=== PATIENT | male | born 1980 | race Caucasian/White ===

== ENCOUNTER 2019-07-11 01:54 | Day surgery (SDC) | payer OTHER, SELFPAY ==
[2019-07-09 10:26] VITALS: BMI 29.7
--- NOTE | 2019-07-11 07:28 | WPDANESEPPF ---
Anes - Initial Pre Proc Eval Procedure: Operation Date: 07/11/19 08:30 Proposed Procedures p Esophagogastroduodenoscopy - Yossi Murdock MD Date/Time: 07/11/19 07:28 Surgeon: Yossi Murdock MD Pre Op Diagnosis: dysphagia Patient Data Age: 38 Gender: M Height: 5 ft 10 in Weight: 94 kg Allergies Allergy/AdvReac Type Severity Reaction Status Date / Time No Known Allergies Allergy Verified 07/09/19 10:33 Home Medications Medication Instructions Recorded Confirmed Type omeprazole magnesium [Prilosec OTC] 20 mg PO DAILY 07/09/19 07/09/19 History Patient hx anesthesia problems: none Family hx anesthesia problems: none PMFSH Family History Family History Father Family history of cardiovascular disease Family history of cardiac disorder Social History Social History Smoking status: Never smoker Alcohol intake: current Anes - Eval Final PreProcedure Day of Procedure 07/11/19 07:28 Patient weight: overweight Heart: regular rate and rhythm Lungs: clear to auscultation Airway: Mallampati scale class II Neurological: alert and oriented Last oral intake: >/= 8 hours ASA classification: II Emergent: no Anesthetic plan: proceed Anesthesia type and monitoring: general GIVS and standard monitoring Informed Consent: The patient's anesthetic plan and its attendant risks and benefits were discussed with the patient/family/POA. Questions were solicited and answers provided to the satisfaction of the patient/family/POA.
[2019-07-11 07:45] VITALS: BP 140/97; PULSE 68; RESP 16; TEMP 36.3; O2SAT 100
[2019-07-11] MEDS: LACTATED RINGERS 1,000 ML 150 ML IV CONT (07:55)
--- NOTE | 2019-07-11 08:23 | PM.HPGS ---
History of Present Illness History of Present Illness Consent: Risks, benefits, and alternatives have been discussed and questions answered. Patient agrees to proceed with procedure. Chief complaint: dysphagia Narrative: Jeremy Coley is a 38 year old male who has been experiencing dysphagia. Two weeks ago, while eating chicken, he suddenly felt it get stuck just below his neck. Finally after while it passed. Ever since then however he has the sensation of something in his throat and has made it difficult for him to eat. Food does not get stuck but he feels that he is not hungry. He has had some heartburn and began taking omeprazole since the occurrence PMFSH Family History Family History Father Family history of cardiovascular disease Family history of cardiac disorder Social History Social History Smoking status: Never smoker Alcohol intake: current Meds Home Medications and Allergies Home Medications Medication Instructions Recorded Confirmed Type omeprazole magnesium [Prilosec OTC] 20 mg PO DAILY 07/09/19 07/11/19 History Allergies Allergy/AdvReac Type Severity Reaction Status Date / Time No Known Allergies Allergy Verified 07/11/19 07:43 Vital Signs Vital Signs - 24 hr 07/11/19 07:45 Temperature 36.3 C L Pulse Rate 68 Respiratory Rate 16 Blood Pressure 140/97 H Pulse Oximetry 100 Exam Const: General: alert Orientation/consciousness: patient oriented x3 Resp: Auscultation: clear to auscultation bilaterally Cardio: Rhythm: regular rhythm GI: GI Palp: Yes Soft to palpation and No Tenderness to palpation present (GI) Neuro: General: patient oriented x3 Assessment and Plan Assessment and plan (1) Dysphagia: Code(s): R13.10 - Dysphagia, unspecified Status: Acute Assessment and Plan: EGD with possible biopsy or dilatation or cautery.
[2019-07-11 08:40] VITALS: BP 102/60; PULSE 67; RESP 18; O2SAT 99
[2019-07-11 08:50] VITALS: BP 108/71; PULSE 64; RESP 20; O2SAT 99
[2019-07-11 09:00] VITALS: BP 115/67; PULSE 60; RESP 17; O2SAT 99
== END 2019-07-11 09:26 | disposition home or self-care (01) ==
PROVIDERS: PCP Family Medicine; Visit Provider Internal Medicine Gastroenterology
PROC: 0DJ08ZZ Inspection of Upper Intestinal Tract, Via Natural or Artificial Opening Endoscopic (ICD-10-PCS; CPT 43235; principal; 2019-07-11 08:30)
DX: K22.2 Esophageal obstruction (principal); D13.0 Benign neoplasm of esophagus; R12 Heartburn
CPT/HCPCS: 43249; 43239; 87081; 88305; C1726; J2704; J7120

== ENCOUNTER 2019-07-24 16:18 | Outpatient (CLI) | payer OTHER, SELFPAY ==
--- NOTE | ~2019-07-24 | XR_ITS ---
EXAMINATION:XR_[id number] DATE: 07/24/2019 16:42 INDICATION: Numbness and tingling down the back of the neck TECHNIQUE: AP, lateral, and odontoid views of the cervical spine are provided. COMPARISON: None FINDINGS: Alignment is normal. The odontoid is intact. No fracture is identified. Vertebral body heig hts and disk spaces are normal. Prevertebral soft tissues are normal. IMPRESSION: 1. No acute osseous abnormality. Reviewed, dictated and finalized at location A.
== END 2019-07-24 16:19 | disposition home or self-care (01) ==
PROVIDERS: PCP Family Medicine; Visit Provider Family Medicine
DX: M54.12 Radiculopathy, cervical region (principal)
CPT/HCPCS: 72040

== ENCOUNTER 2019-08-20 14:37 | Outpatient (CLI) | payer OTHER, SELFPAY ==
--- NOTE | ~2019-08-20 | MR_ITS ---
EXAMINATION: MR cervical spine wo con DATE: 08/20/2019 16:10 INDICATION: Cervical radiculopathy. Neck pain. TECHNIQUE: Magnetic resonance imaging (MRI) of the cervical spine was performed without intravenous c ontrast. Sequences included sagittal T2-weighted FSE, sagittal T2-weighted FS FSE, sagittal T1-weight ed FSE, axial MERGE and axial T2-weighted FSE. COMPARISON: Cervical spine radiographs dated 07/24/2019 FINDINGS: Bone alignment is normal. Vertebral body heights are normal. Bone marrow signal intensity is normal . Disc desiccation with mild disc height loss at T5 C6 and without significant disc height loss at C2 -C3 through C4-C5. There are annular fissures at each of these levels to BE discussed and further det guillermo below. Small central disc protrusions at T1-T2 and T2-T3 with minimal central canal stenosis. C ord signal intensity is normal. Cervical soft tissues are unremarkable. The following disc levels are specifically discussed: C2-C3: The disc does not extend beyond the endplate margin. There is no uncovertebral joint osteoarth ritis. There is no facet joint osteoarthritis. There is no neural foraminal stenosis. There is no abel tral canal stenosis. C3-C4: Disc is mildly bulging. There is mild right and moderate left uncovertebral joint osteoarthrit is. There is mild bilateral facet joint osteoarthritis. There is mild to moderate bilateral neural fo raminal stenosis. There is minimal central canal stenosis. C4-C5: Disc is mildly bulging. There is mild bilateral uncovertebral joint osteoarthritis. There is m ild bilateral facet joint osteoarthritis. There is mild bilateral neural foraminal stenosis. There is minimal central canal stenosis. C5-C6: Disc is mildly bulging with superimposed central disc extrusion with disc material extending a few millimeters cephalad and caudal to the level of the endplate margins and which flattens the vent ral surface of the cord. There is mild to moderate left and moderate right uncovertebral joint osteoa rthritis. There is mild bilateral facet joint osteoarthritis. There is mild left and moderate right n eural foraminal stenosis. There is mild central canal stenosis. C6-C7: Disc is mildly bulging. There is mild bilateral uncovertebral joint osteoarthritis. There is n o facet joint osteoarthritis. There is no neural foraminal stenosis. There is minimal central canal s tenosis. C7-T1: The disc does not extend beyond the endplate margin. There is mild bilateral uncovertebral kayla nt osteoarthritis. There is mild bilateral facet joint osteoarthritis. There is mild left neural fora maribeth stenosis. There is no central canal stenosis. IMPRESSION: 1. Mild cervical spondylosis. Reviewed, dictated and finalized at location A.
== END 2019-08-20 14:38 | disposition home or self-care (01) ==
LOC: ANHIMG 14:38
PROVIDERS: PCP Family Medicine; Visit Provider Family Medicine
DX: M47.22 Other spondylosis with radiculopathy, cervical region (principal)
CPT/HCPCS: 72141

== ENCOUNTER 2020-12-01 01:00 | Observation (INO) | payer OTHER, SELFPAY ==
[2020-12-01] VITALS (10 sets, daily range): BP systolic 128–176; BP diastolic 74–103; PULSE 62–90; RESP 16–23; TEMP 36.3–37; O2SAT 97–100; BMI 29.9
--- NOTE | ~2020-12-01 | XR_ITS ---
EXAMINATION: XR chest 2V DATE: 12/01/2020 01:51 INDICATION: Sternal chest pain TECHNIQUE: PA and lateral views of the chest are obtained. COMPARISON: 12/30/2015 FINDINGS: The lungs are free of acute opacities. There is no pleural effusion or pneumothorax. The ca rdiomediastinal silhouette is normal. The visualized bones and soft tissues are unremarkable. IMPRESSION: 1. No acute cardiopulmonary abnormality. Reviewed, dictated and finalized at location A.
--- NOTE | 2020-12-01 01:03 | ECG_ITS ---
Measurements Intervals [place] Rate: 73 P: 28 NC: 150 QRS: 7 QRSD: 120 T: 0 QT: 382 QTc: 421 Interpretive Statements SINUS RHYTHM WITH SINUS ARRHYTHMIA INTRAVENTRICULAR CONDUCTION DELAY DELAYED PRECORDIAL R/S TRANSITION MINIMAL Q WAVES- HIGH LATERAL LEADS BORDERLINE T WAVE ABNORMALITY- INFERIOR LEADS BASELINE ARTIFACT- I, II, III, AVL, AVF BORDERLINE ECG Electronically Signed On 12-01-2020 6:04:15 CDT by Ike Rubio D.O.
--- NOTE | 2020-12-01 01:05 | ED.CHESTPAIN ---
HPI - Chest Pain General Chief Complaint: Chest Pain Stated Complaint: chest pain, dizziness Time Seen by Provider: 12/01/20 01:01 Source: RN notes reviewed History of Present Illness HPI narrative: Patient presents emergency department from home for chest pain. Patient states he woke with pain this morning the pain is located in the midsternal chest and goes through to his back described as a pressure in nature. States that pain will wax and wane in intensity there is been present throughout the entire day he notes mild associated dizziness with the symptoms he denies any fevers or chills shortness of breath abdominal pain nausea vomiting diarrhea or any other symptoms states nothing makes the pain better or worse did not take any medication at home for the pain Related Data Allergies Allergy/AdvReac Type Severity Reaction Status Date / Time No Known Allergies Allergy Verified 01/28/20 14:16 Review of Systems Review of Systems: Gen.: Denies fevers or chills ENT: Denies congestion Respiratory: Denies shortness of breath or cough CV: See HPI GI: Denies abdominal pain nausea, emesis or diarrhea Musculoskeletal: Denies back pain or muscle pain Neuro: Denies numbness, tingling, weakness or focal weakness Skin: Denies rash Except as documented, all other systems reviewed and negative FORMERLY [facility], [facility]–1983 Past Medical History Medical History Acute gastric ulcer Angioedema Dysphagia History of chicken pox Pneumonia Surgical History Surgical History History of esophagogastroduodenoscopy (EGD) Murdock/4.15.20: schatzki's ring/ dilated. no white's History of vasectomy Family History Family History Father Heart disease Mother No chronic problems Grandparent Alzheimer's disease Social History Social History (Updated 12/01/20 @ 01:06 by Arturo Suresh DO) Smoking status: Never smoker Alcohol intake: current Exam Narrative: APPEARANCE: No acute distress, nontoxic, resting in bed EYES: EOMI HEENT: Normocephalic, atraumatic, OMM RESPIRATORY: No respiratory distress Clear to auscultation bilaterally with no rhonchi wheezing or rales. CARDIOVASCULAR: Regular rate and rhythm without murmurs rubs or gallops. ABDOMINAL: Soft, nontender, nondistended, no rebound or guarding MUSCULOSKELETAl: Moves all extremities. No clubbing, cyanosis or edema. NEURO: Awake and alert. Following commands, speech normal, no focal deficits SKIN:: Warm, dry. No rashes lesions or abrasions PSYCHIATRIC: Normal affect/mood, Course Course Emergency Course: Patient states chest pain is resolved at this time Called and discussed with Dr. Ty presentation work-up agrees with admission to the chest pain center at this time Discussed with patient and family results of workup and diagnosis. Discussed need for admission. Patient and family understand and agree to current treatment plan Vital Signs Vital signs: Vital Signs Temperature 98.6 F 12/01/20 01:07 Pulse Rate 85 12/01/20 01:07 Respiratory Rate 20 12/01/20 01:07 Blood Pressure 176/103 H 12/01/20 01:07 Pulse Oximetry 99 12/01/20 01:07 Temperature 98.6 F 12/01/20 01:07 Pulse Rate 64 12/01/20 04:38 Respiratory Rate 16 12/01/20 04:38 Blood Pressure 128/80 12/01/20 04:38 Pulse Oximetry 97 12/01/20 04:38 MDM - Chest Pain Lab Data Result diagrams: 12/01/20 01:09 12/01/20 01:09 Labs: Lab Results 12/01/20 12/01/20 12/01/20 Range/Units 01:09 01:09 01:09 WBC 9.2 (4.5-10.0) K/mm3 RBC 5.29 (4.6-6.20) M/mm3 Hgb 16.5 (14.0-18.0) g/dL Hct 48.3 (42.0-52.0) % MCV 91.3 (80-100) fl MCH 31.2 (26-34) pg MCHC 34.2 (32-36) g/dl RDW 12.7 (11.5-14.5) % Plt Count 301 (150-375) k/mm3 MPV 9.3 (7.4-10.4) fl Immature Gran % (A
[2020-12-01 01:16] LABS: Basophils Absolute Auto 0.1 K/mm3 (0.0-0.1); Basophils Percent Auto 0.8 % (0.2-1.2); Eosinophils Absolute Auto 0.3 K/mm3 (0-0.3); Eosinophils Percent Auto 2.9 % (0-4.4); Hematocrit 48.3 % (42.0-52.0); Hemoglobin 16.5 g/dL (14.0-18.0); Immature Granulocyte Absolute 0.02 K/mm3 (0.00-0.031); Immature Granulocyte Percent A 0.2 % (0-0.5); Lymphocytes Percent Auto 33.6 % (18.3-44.2); Mean Corpuscular HGB Conc 34.2 g/dl (32-36); Mean Corpuscular Hemoglobin 31.2 pg (26-34); Mean Corpuscular Volume 91.3 fl (80-100); Mean Platelet Volume 9.3 fl (7.4-10.4); Monocytes Absolute Auto 0.8 K/mm3 (0.1-0.6); Monocytes Percent Auto 8.8 % (2.6-8.5); Neutrophils Percent Auto 53.7 % (45.5-73.1); Platelet Count Result 301 k/mm3 (150-375); Red Blood Count 5.29 M/mm3 (4.6-6.20); Red Cell Distribution Width 12.7 % (11.5-14.5); White Blood Count 9.2 K/mm3 (4.5-10.0)
[2020-12-01 01:29] LABS: Alanine Aminotransferase 25 U/L (4-50); Albumin Level 4.8 g/dL (3.5-5.1); Alkaline Phosphatase 81 U/L (38-126); Anion Gap 10 mmol/L (8-16); Aspartate Amino Transferase 33 U/L (17-59); Bilirubin,Total 1.3 mg/dL (0.2-1.3); Blood Urea Nitrogen 9 mg/dL (9-20); Calcium 9.9 mg/dL (8.4-10.2); Carbon Dioxide 26 mmol/L (22-30); Chloride 97 mmol/L (98-107); Estimated Glomerular Filt Rate > 60; Glucose 100 mg/dL (65-110); Lipase 49 U/L (23-300); Potassium 3.3 mmol/L (3.4-5.0); Sodium 133 mmol/L (137-145)
[2020-12-01 01:42] LABS: INR 0.9; Prothrombin Time 12.5 Seconds (11.1-14.7)
[2020-12-01 01:46] LABS: Troponin I < 0.012 ng/mL (0.000-0.034)
[2020-12-01 01:53] LABS: Partial Thromboplastin Time 25.4 SECONDS (22.3-36.8)
[2020-12-01 02:03] LABS: D Dimer 0.27 ug/mL (<0.48)
[2020-12-01] MEDS: KETOROLAC 30 MG/ML VIAL (*BKC) IV PUSH (02:10)
[2020-12-01 04:39] LABS: Troponin I < 0.012 ng/mL (0.000-0.034)
[2020-12-01] MEDS: ASPIRIN 81 MG CHEWABLE TABLET 324 MG PO (05:43)
[2020-12-01 06:01] LABS: Cholesterol 176 mg/dL (0-200); HDL Direct 45 mg/dL; Triglycerides 185 mg/dL (<150)
[2020-12-01 06:13] LABS: LDL Cholesterol Direct 80 mg/dL
[2020-12-01 07:35] LABS: Troponin I < 0.012 ng/mL (0.000-0.034)
--- NOTE | 2020-12-01 09:12 | PM.IMHP ---
H&P: HPI History of Present Illness Date/Time: Date of service: 12/01/20 09:12 Chief Complaint: Burning and pressure-like chest pain Narrative: Patient is a very pleasant 40-year-old male with a history of remote tobacco abuse, recurrent atypical chest pain, history dyslipidemia with marked improvement with diet and lifestyle modifications, history of GERD, Schatzki's ring status post dilatation July 2019 who was in his usual state of health when he notes over the past week or so he began to experience recurrent and progressive GERD symptoms described as a burning-like sensation in the lower chest/upper epigastrium which did improve his symptoms but without resolution. Symptoms were brought on after meals worse lying down. He states day prior to presentation he woke with worsening burning sensation and did not feel well felt lightheaded but no nausea vomiting. No fevers, chills, recent illnesses or sick contacts. He denied hemoptysis, bright red blood per rectum or melena. No constipation diarrhea. He drinks some water felt better. He admits he had not been eating and drinking quite is consistently due to his GERD symptoms. He states this is very similar to how he felt prior to dilatation of his Schatzki's ring. However, as his symptoms worsened and moved up into his upper chest pressure-like sensation with some radiation to the back he became concerned and then his mother block him over checked his blood pressure and 1 point was well over 200 mm Hg systolic so he presented to the ER. He was given GI cocktail and Ketoralac in the ER with improvement in his symptoms. He also started taking Prilosec daily over the past week along with aspirin 81 mg daily. He has ruled out for infarction with negative troponin x3, symptoms improved but not completely resolved but he is otherwise comfortable. Denies shortness of breath declining activity tolerance at any time. He has not any eating and drinking quite as robust likely due to his symptoms. Blood pressure remains elevated 176/103 at presentation currently 156/99. Review of Systems Review of Systems: All systems reviewed & are unremarkable except as noted in HPI and below Constitutional: Constitutional: Reports as per HPI and Reports no additional constitutional complaints Eyes: Eyes: Reports as per HPI and Reports no additional eye complaints ENT: Reports system reviewed and no additional complaints, except as documented and Reports as per HPI Cardiovascular: Cardiovascular: Reports as per HPI, Reports no additional cardiovascular complaints, Reports chest pain, Denies diaphoresis, Denies pedal edema, Denies leg edema, Reports lightheadedness and Denies palpitations Respiratory: Respiratory: Reports as per HPI, Reports no additional respiratory complaints, Denies cough, Denies hemoptysis, Denies dyspnea, Denies dyspnea on exertion and Denies wheezing Gastrointestinal: Gastrointestinal: Reports as per HPI, Reports no additional gastrointestinal complaints, Denies abdominal pain, Denies melena, Denies bloating, Denies hematochezia, Denies constipation, Reports heartburn, Denies diarrhea, Denies nausea, Denies vomiting and Denies hematemesis Genitourinary: Genitourinary: Reports no additional male genitourinary complaints and Reports as per HPI Musculoskeletal: Musculoskeletal: Reports no additional musculoskeletal complaints and Reports as per HPI Integumentary/Breasts: Skin/Breast: Reports system reviewed and no additional complaints, except as docu and Reports as per HPI Neurologic: Reports system reviewed and no additional complaints, except as documented and Reports as per HPI Psychiatric: Psychiatric: Reports no additional psychiatric complaints and Reports as per HPI Endocrine: Endocrine: Reports no additional endocrine complaints and Reports as per HPI Hematologic/Lymphatic: Hematologic/Lymphatic: Reports no additional hematologic/lymphatic complaints and Reports as per HPI Allergic/Immunologi
[2020-12-01] MEDS: PANTOPRAZOLE 40 MG TABLET PO (09:30)
[2020-12-01] MEDS: LOSARTAN POTASSIUM 25 MG TABLET PO (09:30)
[2020-12-01] MEDS: POTASSIUM CHLORIDE 20 MEQ TABLET PO (09:46)
--- NOTE | 2020-12-01 11:03 | ADMGEN ---
This patient, Jeremy Coley, was admitted [facility] Patient/family oriented to hospital policies and general routines including ID bracelet, bed and alarms, visiting hours, pain management, procedures, bathroom and other care routines, personal items, smoking policy, room service/diet, and visiting hours. Information on how to activate the Rapid Response Team has been discussed. Patient/Family are encouraged to report perceived risks to care and to ask questions if they do not understand what they are told or what they should do.
--- NOTE | 2020-12-01 11:09 | PC.NURSE ---
Notified Dr. Aleman of patient's two most recent blood pressure readings and denial of any pain. Dr. Aleman states patient is able to be discharged at this time. Dr. Aleman instructed patient to notify their primary care provider of their recent hospitalization. Follow-up appointment made with Dr. Aleman's office at time of discharge, per Dr. Aleman's request.
--- NOTE | 2020-12-01 11:32 | ECG_ITS ---
Measurements Intervals [place] Rate: 69 P: 5 VA: 156 QRS: 0 QRSD: 115 T: -8 QT: 391 QTc: 419 Interpretive Statements SINUS RHYTHM INTRAVENTRICULAR CONDUCTION DELAY DELAYED PRECORDIAL R/S TRANSITION VOLTAGE CRITERIA FOR LVH MINIMAL Q WAVES- HIGH LATERAL LEADS BORDERLINE T WAVE ABNORMALITY- INFERIOR LEADS BORDERLINE ECG Electronically Signed On 12-01-2020 9:57:43 CDT by Ike Rubio D.O.
--- NOTE | 2020-12-01 11:35 | PC.NURSE ---
All discharge education reviewed with patient. PIV removed intact, dressing applied. Patient denies pain at discharge. Patient verbalizes understanding of all information received. Reinforced medication education, signs and symptoms of a heart attack, and when to notify provider. Verified medication prescriptions transmitted and ready for pickle water pump operator with patient. Patient escorted to hospital exit by staff where vehicle where he drove himself home.
== END 2020-12-01 11:30 | disposition home or self-care (01) ==
LOC: ANHED 05:35 → ANHCPC 09:42
PROVIDERS: Admitting Provider Specialist; Emergency Provider Emergency Medicine; PCP Family Medicine; Visit Provider Internal Medicine Cardiovascular Disease
DX: R07.9 Chest pain, unspecified (principal); K22.2 Esophageal obstruction; R07.89 Other chest pain; E78.5 Hyperlipidemia, unspecified; K21.9 Gastro-esophageal reflux disease without esophagitis; I10 Essential (primary) hypertension; Z87.891 Personal history of nicotine dependence
CPT/HCPCS: 36415; 71046; 80053; 80061; 83690; 84484; 85025; 85380; 85610; 85730; 93005; 99285; A9270; G0378; J1885

== ENCOUNTER 2021-01-15 08:19 | Outpatient (CLI) | payer OTHER, SELFPAY ==
--- NOTE | ~2021-01-15 | US_ITS ---
EXAMINATION: US abdomen complete EXAM DATE: 01/15/2021 09:40 INDICATION: R10.13 - Epigastric pain epigastric pain. TECHNIQUE: Multiple grayscale and Doppler images of the complete abdomen were obtained (by a technolo gist who performed the scan) and subsequently reviewed. There is no prior study for comparison. FINDINGS: The abdominal aorta is normal in caliber. Visualized portion IVC is patent. The pancreatic head a nd body are normal in appearance. The pancreatic tail is not visualized. The liver has normal echogenicity and contour. There are no focal liver lesions identified. There is no evidence of intrahepatic biliary duct dilation. Portal venous flow was seen in the hepatopedal , normal direction and has normal Doppler waveform. Common bile duct measures 5 mm, which is normal. The gallbladder wall is normal in thickness, with ex pected amount of distention. No sonographic evidence of pericholecystic fluid. There is no cholelit hiases. Technologist performing exam reports patient did not demonstrate sonographic Osman's sign. Please note that this sign is less reliable in patients who have received pain medication. Right kidney: There is normal contour and echogenicity. It measures 11.9 x 6.0 x 5.3 centimeters. There are no focal renal lesions identified. There is no hydronephrosis. Left kidney: There is normal contour and echogenicity. It measures 12.5 x 5.1 x 6.3 centimeters. T here are no focal renal lesions identified. There is no hydronephrosis. The spleen measures 10.4 centimeters and is morphologically normal. IMPRESSION: 1. Unremarkable complete abdominal ultrasound exam. Reviewed, dictated and finalized at location A.
== END 2021-01-15 08:20 | disposition home or self-care (01) ==
LOC: ANHIMG 08:22
PROVIDERS: PCP Family Medicine; Visit Provider Internal Medicine Gastroenterology
DX: R10.13 Epigastric pain (principal)
CPT/HCPCS: 76700

== ENCOUNTER 2023-11-01 11:45 | Emergency (ER) | payer OTHER, SELFPAY ==
[2023-11-01 11:54] VITALS: BP 162/94; PULSE 71; RESP 16; TEMP 37.4; O2SAT 98
--- NOTE | 2023-11-01 12:42 | ED.URI ---
HPI - URI/Sore Throat General Chief Complaint: Upper Respiratory Infection Stated Complaint: sinus pressure Time Seen by Provider: 11/01/23 12:30 Source: patient, RN notes reviewed and old records reviewed Mode of arrival: ambulatory Limitations: no limitations History of Present Illness HPI Narrative: 43 year old male presents to express care with complaints of sinus pressure, facial pain, congestion of sinus,headaches with low grade temperature. Patient reports that he had symptoms starting about a week ago and took a script of azithromycin and also some steroids little better then symptoms increased did get script for Cefdinir which started on the . Patient reports that he bosch been taking Flonase nasal spray, using neti pot and has taken Sudafed with no relief and takes antihistamine daily. Patient states is suppose to start vacation tomorrow. MD elicited complaint: sinus pain and other Pertinent past history: sinusitis and seasonal allergies Pain scale (0-10): 5 Able to tolerate fluids by mouth: Yes Treatments prior to arrival: other (antihistamine, flonase neti pot on antibiotic of cefdinir) Related Data Home Medications Medication Instructions Recorded Confirmed cefdinir 300 mg capsule See Rx Instructions .Route .COMPLEX 11/01/23 11/01/23 Allergies Allergy/AdvReac Type Severity Reaction Status Date / Time No Known Allergies Allergy Verified 04/19/23 10:15 Review of Systems Review of Systems: CONSTITUTIONAL:Reports malaise, chills, sweats, or fever. EYES: Denies visual changes, redness, or discharge. ENT: Reports rhinorrhea, congestion, sinus pain, no otalgia and no sore throat. CARDIOVASCULAR: Denies chest pain, palpitations, or edema. RESPIRATORY: Reportsno acute cough.? Denies dyspnea. GASTROINTESTINAL: Denies abdominal pain, nausea, vomiting, diarrhea SKIN: Denies rash or itching. MUSCULOSKELETAL: Denies myalgia. NEUROLOGIC: Reports frontal headache. All systems reviewed & are unremarkable except as noted in HPI and below PMFSH Past Medical History Medical History (Updated 11/02/23 @ 09:04 by Aishwarya Galan NP) Acute gastric ulcer Angioedema Dysphagia GERD with esophagitis History of chicken pox Pneumonia Schatzki's ring Surgical History Surgical History History of esophagogastroduodenoscopy (EGD) Murdock/4.15.20: schatzki's ring/ dilated. no white's History of vasectomy Family History Family History Father Heart disease Mother No chronic problems Grandparent Alzheimer's disease Social History Social History (Updated 11/02/23 @ 09:00 by Aishwarya Galan NP) Smoking status: Former smoker Tobacco type: cigarettes Smoking end date: 04/04/10 Alcohol intake: current Drinks per week: 8 Substance use type: does not use Do You Feel Safe in your Home?: Yes Lack of Transportation: No Lack of Food: Never True Current Housing: I Have Housing Concerned About Future Housing: No Difficulty Paying Gas/Electric Bills: No Difficulty Paying for Meds: No Currently Unemployed: No Education: Bachelor's Degree Difficulty w/ Childcare or Family Care: No Living arrangements: with family Gender identity (if verbalized by the patient): Male Spiritual care concerns: No Comments At time of signature, agree with nursing past medical, surgical, social and family history. There is no relevant family history pertinent to the presenting complaint Exam Narrative: GENERAL: Well-appearing, well-nourished, and in no acute distress. HEAD: Normocephalic EYES: PERRLA, conjunctivae clear ENT: Nares tissues red and swollen, turbinates edematous and erythematous, clear discharge.sinus pressure frontal headache, Mucous membranes moist. TM pearly maldonado with dull light reflex bilaterally; no tragal tenderness. Oropharynx erythematous w
== END 2023-11-01 13:00 | disposition home or self-care (01) ==
PROVIDERS: Emergency Provider Registered Nurse; PCP Family Medicine
DX: J32.9 Chronic sinusitis, unspecified (principal); Z87.891 Personal history of nicotine dependence; K21.00 Gastro-esophageal reflux disease with esophagitis, without bleeding; Z98.52 Vasectomy status
CPT/HCPCS: 99213; G0463

== ENCOUNTER 2024-01-23 08:07 | Outpatient (CLI) | payer OTHER, SELFPAY ==
[2024-01-23 16:42] LABS: Basophils Absolute Auto 0.1 K/mm3 (0.0-0.1); Basophils Percent Auto 0.7 % (0.2-1.2); Eosinophils Absolute Auto 0.2 K/mm3 (0-0.3); Eosinophils Percent Auto 2.4 % (0-4.4); Hematocrit 49.1 % (42.0-52.0); Hemoglobin 15.8 g/dL (14.0-18.0); Immature Granulocyte Absolute 0.02 K/mm3 (0.00-0.031); Immature Granulocyte Percent A 0.3 % (0-0.5); Lymphocytes Percent Auto 26.7 % (18.3-44.2); Mean Corpuscular HGB Conc 32.2 g/dl (32-36); Mean Corpuscular Hemoglobin 31.4 pg (26-34); Mean Corpuscular Volume 97.6 fl (80-100); Mean Platelet Volume 9.8 fl (7.4-10.4); Monocytes Absolute Auto 0.8 K/mm3 (0.1-0.6); Neutrophils Absolute Auto 4.2 K/mm3 (1.3-6.7); Neutrophils Percent Auto 58.9 % (45.5-73.1); Platelet Count Result 333 k/mm3 (150-375); Red Blood Count 5.03 M/mm3 (4.6-6.20); Red Cell Distribution Width 12.9 % (11.5-14.5); White Blood Count 7.1 K/mm3 (4.5-10.0)
[2024-01-23 17:06] LABS: Alanine Aminotransferase 36 U/L (6-50); Albumin Level 4.7 g/dL (3.5-5.1); Alkaline Phosphatase 69 U/L (38-126); Anion Gap 9 mmol/L (4-12); Aspartate Amino Transferase 57 U/L (17-59); Bilirubin,Total 0.9 mg/dL (0.2-1.3); Blood Urea Nitrogen 16 mg/dL (9-20); Calcium 9.8 mg/dL (8.4-10.2); Carbon Dioxide 31 mmol/L (22-30); Chloride 98 mmol/L (98-107); Cholesterol 240 mg/dL (0-200); Estimated Glomerular Filt Rate > 60; Glucose 74 mg/dL (65-110); HDL Direct 51 mg/dL; Potassium 4.3 mmol/L (3.4-5.0); Sodium 138 mmol/L (137-145); Triglycerides 234 mg/dL (<150)
[2024-01-23 17:16] LABS: LDL Cholesterol Direct 119 mg/dL
== END 2024-01-23 08:08 | disposition home or self-care (01) ==
LOC: ANHGOSHLAB 08:08
PROVIDERS: PCP Family Medicine; Visit Provider Student in an Organized Health Care Education/Training Program
DX: E78.2 Mixed hyperlipidemia (principal); K76.0 Fatty (change of) liver, not elsewhere classified; Z13.0 Encounter for screening for diseases of the blood and blood-forming organs and certain disorders involving the immune mechanism; I10 Essential (primary) hypertension
CPT/HCPCS: 36415; 80053; 80061; 85025

== ENCOUNTER 2024-12-14 12:21 | Outpatient (CLI) | payer OTHER, SELFPAY ==
--- NOTE | ~2024-12-14 | US_ITS ---
EXAMINATION: US abdomen complete DATE: 12/14/2024 13:57 INDICATION: Low abdominal pain, unspecified. TECHNIQUE: Multiple grayscale and Doppler ultrasound images of the abdomen were obtained. COMPARISON: Ultrasound 01/15/2021, CT abdomen and pelvis 11/05/2016 FINDINGS: The visualized portions of the head, body, and tail of the pancreas are normal. There is diffuse hepatic steatosis. There is normal flow in main portal vein. The gallbladder is normal in size. No gallstones or gallbladder wall thickening. There is no sonographic Osman's sign. The common duct is normal and measures 4 mm. The kidneys are normal in size. The spleen is normal in size. Abdominal aorta is normal in caliber. Inferior vena cava is normal. IMPRESSION: 1. Diffuse hepatic steatosis. Reviewed, dictated and finalized at location E.
--- OUTSIDE RECORDS SUMMARY | 2024-12-14 13:15 | XMS_ITS | Clinical Summary ---
Author Organization [facility] [place] [address] Address [address] [place] [address] Care Team Providers Care Unit Coordinator Name Role Phone Teresa Webb MD Primary Care Provider + Allergies No known active allergies Medications multivitamin capsule Take 1 capsule by mouth daily Active omeprazole (PriLOSEC) 20 mg capsule Take 1 capsule (20 mg total) by mouth daily Active losartan (COZAAR) 25 mg tablet TAKE 1 TABLET(25 MG) BY MOUTH DAILY 90 tablet 2 5 Active atorvastatin (LIPITOR) 10 mg tabletIndications: Mixed hyperlipidemia Take 1 tablet (10 mg total) by mouth daily (Take in the evening) 30 tablet 11 5 11/16/19 26 Active rosuvastatin (CRESTOR) 10 mg tablet Take 1 tablet (10 mg total) by mouth daily 90 tablet 3 4 11/16/19 25 Discontin ued(Other ) Active Problems Problem Noted Date Diagnosed Date Nonrheumatic mitral valve regurgitation 03/06/20 24 Intermittent abdominal pain 11/30/2021 Other constipation 11/30/2021 Mixed hyperlipidemia 07/15/2021 Primary hypertension 01/07/2021 Lipid screening 03/25/2017 Palpitations 03/25/2017 Abnormal EKG 02/16/2016 Overview (07/09/2016): Abnormal ECG History of tobacco use 02/16/2016 Overview (07/09/2016): History of tobacco abuse Chest pain 02/16/2016 Overview (07/09/2016): Chest pain in adult Resolved Problems Problem Noted Date Diagnosed Date Resolved Date Dyslipidemia 03/25/2017 07/15/2021 Encounters Date Type Department Care Team Description 11/15/2024 9:30 AM CDT Office Visit [facility] [address] [place] [address] Mariana Forte NP Primary hypertension (Primary Dx); Mixed hyperlipidemia; Palpitations from Last 3 Months Medical History Medical History Date Comments Chest pain Hypertension Family History Medical History Relation Name Comments Heart disease Father Heart disease Father's Brother Alzheimer's disease Mother Alive an d well; Heart disease Paternal Grandfather Celiac disease Neg Hx Colon cancer Neg Hx Esophageal cancer Neg Hx Inflammatory bowel disease Neg Hx Stomach cancer Neg Hx Relation Name Status Comments Father Alive Father's Brother Alive Mother Alive Paternal Grandfather Social History Tobacco Use Types Packs/Day Years Used Date Smoking Tobacco: Former Cigarettes Q uit: 2010 Smokeless Tobacco: Never Tobacco Cessation:Counseling Given: Not Answered Alcohol Use Standard Drinks/Week Comments Yes 0 (1 standard drink = 0.6 oz pur e alcohol) AUDIT-C Answer Date Recorded Q1: How often do you have a drink containing alc ohol? 2-3 times a week 11/30/2021 Q2: How many drinks containi ng alcohol do you have on a typical day when you are drinking? 1 or 2 11/30/2021 Q3: How often do you have si x or more drinks on one occasion? 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 Gender Identity Not on file Sexual Orientation Not on file Obstetrics History Last Filed Vital Signs Vital Sign Reading Time Taken Comments Blood Pressure 132/82 11/15/2024 10:00 AM CDT Pulse 73 11/15/2024 10:00 AM CDT Temperature 36.4 C (97.6 F) 09/03/2022 9:37 AM CDT Respiratory Rate 16 09/03/2022 9:37 AM CDT Oxygen Saturation 98% 11/15/2024 10:00 AM CDT Inhaled Oxygen Concentration - - Weight 98.4 kg (217 lb) 11/15/2024 10:00 AM CDT Height 177.8 cm (5' 10) 11/15/2024 10:00 AM CDT Body Mass Index 31.14 11/15/2024 10:00 AM CDT Plan of Treatment Health Maintenance Due Date Last Done Comments Colon Cancer Screening-Colonoscopy 1979 Depression Screening 1979 Hepatitis C Screening 1979 DTaP/Tdap/Td Vaccine (1 - Tdap) 07/12/1990 Varicella Vaccines (1 of 2 - 13+ 2-dose series) 07/12/1992 Hepatitis B Screening 07/12/1997 Regular Well Visit/Exam 18-64 07/12/1997 HPV Vaccines (1 - 3-dose SCD M series) 07/12/2006 Covid-19 Vaccine ( - 2024-2 6 season) 2024 07/29/2020, 07/01/2020 Influenza Vaccine (#1) 2024 Pneumococcal vaccine <65 Aged Out No longer eligible based on patient's age to complete this topic Procedures Procedure Name Priority Date/Time Associated Diagnosis Comments POCT LIPID PANEL Routine 11/15/2024 10:2 4 AM CDT Mixed hyperlipidemia from Last 3 Months Results * (ABNORMAL) POCT lipid panel (11/15/2024 10:24 AM CDT) Cholesterol, POC 239 <200 MG/DL HDL, POC 37(A) >=40 mg/dL Triglycerides, POC 54 <=149 mg/dL LDL Cholesterol POC 190(A) <=129 mg/dL Chol/HDL Ratio, POC 5.1 NONE Non-HDL Cholesterol, POC 201 NONE mg/dL Cholesterol Total, POC 239(A) 30 - 199 mg/dL Capillary blood 11/15/2024 1 0:24 AM CDT Mariana Forte NP POINT OF CARE TEST ORDERA BLES Final Result from Last 3 Months Insurance [employer] OPEN ACCESS [employer] OPEN ACCESS [employer] OPEN ACCESS Care Teams Unit Coordinator Relationship Specialty Start Date End Date Teresa Webb MD PCP - General 02/16/16
== END 2024-12-14 12:22 | disposition home or self-care (01) ==
PROVIDERS: PCP Family Medicine; Visit Provider Student in an Organized Health Care Education/Training Program
DX: R10.30 Lower abdominal pain, unspecified (principal); K76.0 Fatty (change of) liver, not elsewhere classified
CPT/HCPCS: 76700

== ENCOUNTER 2025-01-08 11:04 | Outpatient (CLI) | payer OTHER, SELFPAY ==
--- NOTE | ~2025-01-08 | CT_ITS ---
EXAMINATION: CT abdomen pelvis w con DATE: 01/08/2025 11:31 INDICATION: Low abdominal pain. TECHNIQUE: Computed tomography (CT) of the abdomen and pelvis was performed with 100 mL Omnipaque 350 intravenous contrast. Automated exposure control and iterative reconstruction technique were employed. The dose-length product was 1048.03 mGy-cm. COMPARISON: CT abdomen and pelvis 11/05/2016 FINDINGS: The visualized portions of the lung bases demonstrate mild atelectasis. No pleural effusion. The heart size is normal. No pericardial effusion. The liver, gallbladder, spleen, pancreas, adrenal glands, and kidneys are normal. There are no dilated loops of bowel. The appendix is normal. There are no pathologically enlarged lymph nodes. There is no free intraperitoneal fluid. There is mild lumbar spondylosis. IMPRESSION: 1. No etiology for the patient's symptoms. Reviewed, dictated and finalized at location E.
[2025-01-08 11:22] LABS: Estimated Glomerular Filt Rate > 60
== END 2025-01-08 11:05 | disposition home or self-care (01) ==
LOC: MICIMG 11:05
PROVIDERS: PCP Family Medicine; Visit Provider Nurse Practitioner Family
DX: R10.30 Lower abdominal pain, unspecified (principal); N41.9 Inflammatory disease of prostate, unspecified
CPT/HCPCS: 74177; Q9967

== ENCOUNTER 2025-02-25 09:15 | Outpatient (CLI) | payer OTHER, SELFPAY ==
--- OUTSIDE RECORDS SUMMARY | 2025-02-25 10:11 | XMS_ITS | Clinical Summary ---
Author Organization [facility] [place] [address] Address [address] [place] [address] Care Team Providers Care Establishment Guide Name Role Phone Teresa Webb MD Primary Care Provider + Allergies No known active allergies Medications multivitamin capsule Take 1 capsule by mouth daily Active omeprazole (PriLOSEC) 20 mg capsule Take 1 capsule (20 mg total) by mouth daily Active atorvastatin (LIPITOR) 10 mg tabletIndications: Mixed hyperlipidemia Take 1 tablet (10 mg total) by mouth daily (Take in the evening) 30 tablet 11 11/16/19 25 026 Active losartan (COZAAR) 25 mg tablet TAKE 1 TABLET(25 MG) BY MOUTH DAILY 90 tablet 2 02/05/20 25 Active losartan (COZAAR) 25 mg tablet TAKE 1 TABLET(25 MG) BY MOUTH DAILY 90 tablet 2 04/30/19 25 025 Discontinued Active Problems Problem Noted Date Diagnosed Date [...] Diagnosed Date Resolved Date Dyslipidemia 03/25/2017 07/15/2021 Medical History Medical History Date Comments Chest [...] on file 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
[2025-02-25 13:05] LABS: Hematocrit 45.9 % (42.0-52.0); Hemoglobin 15.2 g/dL (14.0-18.0); Immature Granulocyte Percent A 0.3 % (0-0.5); Lymphocytes Absolute Auto 1.68 K/mm3 (0.9-3.2); Mean Corpuscular HGB Conc 33.1 g/dl (32-36); Mean Corpuscular Hemoglobin 31.2 pg (26-34); Mean Corpuscular Volume 94.3 fl (80-100); Nucleated Red Blood Cells Absolute Auto 0.000 K/mm3 (0.0-0.012); Nucleated Red Blood Cells Perc 0.0 % (0.0-0.2); Platelet Count Result 319 k/mm3 (150-375); Red Blood Count 4.87 M/mm3 (4.6-6.20); White Blood Count 5.8 K/mm3 (4.5-10.0)
[2025-02-25 13:25] LABS: Alanine Aminotransferase 42 U/L (6-50); Albumin Level 4.8 g/dL (3.5-5.1); Alkaline Phosphatase 71 U/L (38-126); Anion Gap 10 mmol/L (4-12); Aspartate Amino Transferase 40 U/L (17-59); Bilirubin,Total 0.9 mg/dL (0.2-1.3); Blood Urea Nitrogen 14 mg/dL (9-20); Calcium 9.7 mg/dL (8.4-10.2); Carbon Dioxide 27 mmol/L (22-30); Chloride 101 mmol/L (98-107); Cholesterol 186 mg/dL (0-200); Estimated Glomerular Filt Rate > 60; Glucose 92 mg/dL (65-110); HDL Direct 62 mg/dL; Potassium 4.2 mmol/L (3.4-5.0); Sodium 138 mmol/L (137-145); Total Protein 8.5 g/dL (6.3-8.2); Triglycerides 91 mg/dL (<150)
[2025-02-25 14:08] LABS: Prostate Specific Antigen 0.7 ng/mL (< OR = 4.0)
== END 2025-02-25 09:16 | disposition home or self-care (01) ==
LOC: ANHGOSHLAB 09:15
PROVIDERS: PCP Family Medicine; Visit Provider Student in an Organized Health Care Education/Training Program
DX: Z12.5 Encounter for screening for malignant neoplasm of prostate (principal); I10 Essential (primary) hypertension; E78.2 Mixed hyperlipidemia
CPT/HCPCS: 36415; 80053; 80061; 84153; 85025; G0103